=== PATIENT | female | born 1930 | race Caucasian/White ===

== ENCOUNTER 2016-12-05 11:23 | Inpatient (IN) | payer OTHER ==
[~2016-12-05] VITALS: Ht 165.1 cm; Wt 83.7 kg
[~2016-12-05 11:23] MED LIST: AMLODIPINE BESY10 MG PO; ATIVAN0.5 MG PO; ATORVASTATIN CA40 MG PO; BACTRIM,SEPT1 TABLET PO; BISACODYL5 MG PO; CELEXA10 MG PO; COUMADIN3 MG PO; Chronulac,Cephulac,Enulose 20 gm/30 ml PO; DOCUSATE SODIU100 MG PO; DULCOLAX5 MG PO; ENDOCET 5-3251 EACH PO; ENULOSE10 GM/15 M PO; GENTLE LAXATIVE5 M1 PO; HIPREX1 GM PO; HYDROCODON-ACE1 EAC7 PO; IMODIUM MS REL1 EACH PO; IRON325 M1 PO; IRON325 MG PO; LABETALOL HCL100 MG PO; LEXAPRO20 MG PO; LIPITOR40 MG PO; LISINOPRIL10 MG PO; LORAZEPAM0.5 MG PO; LORAZEPAM1 MG PO; NORCO 5/3251 TABLET PO; NORVASC10 MG PO; OMEPRAZOLE20 MG PO; PANTOPRAZOLE SO40 MG PO; POTASSIUM CITR10 MEQ PO; PRINIVIL10 MG PO; PROMETHAZINE HC25 M1 PO; STOOL SOFTENER100 M1 PO; SYNTHROID50 MCG PO; TRAZODONE HCL50 MG PO; TYLENOL REGULA325 MG PO; ULTRAM50 MG PO; ZOLOFT50 MG PO
[2016-12-05 11:55] LABS: EOSINOPHIL (%) 0.1 % (0-5); HEMATOCRIT 35.2 % (36.0-46.0); IMMATURE GRANULOCYTE (%) 0.8 % (0.0-0.7); IMMATURE GRANULOCYTE COUNT 0.1 K/uL; INSTRUMENT ABS NEUTROPHIL CT 10.3 K/uL; LYMPHOCYTE COUNT 1.3 K/uL (1.0-2.8); MCV 97.2 FL (83-99); MEAN PLAT.VOLUME 10.2 uM^3 (9.5-12.4); MONOCYTE (%) 10.5 % (3-12); MONOCYTE COUNT 1.4 K/uL (0-0.8); NEUTROPHIL (%) 78.4 % (45-76); NEUTROPHIL COUNT 10.3 K/uL (1.8-6.4); PLATELET COUNT 243 K/uL (156-360); RBC DIS.WIDTH-CV 13.9 % (11.8-14.6); RBC DIS.WIDTH-SD 50.4 % (39-53); RED BLOOD COUNT 3.62 M/uL (3.80-5.20); WHITE BLOOD COUNT 13.1 K/uL (4.1-10.2)
[2016-12-05 12:03] LABS: CHLORIDE 99 mEq/L (99-109); POTASSIUM 4.7 mEq/L (3.7-5.4); SODIUM 135 mEq/L (136-147)
[2016-12-05 12:05] LABS: GLUCOSE 142 mg/dL (70-99)
[2016-12-05 12:06] LABS: ANION GAP 14 MEQ/L (2-14)
[2016-12-05 12:07] LABS: TOTAL BILIRUBIN 0.8 mg/dL (0.0-1.0)
[2016-12-05 12:09] LABS: ALKALINE PHOSPHATASE 141 IU/L (3-129); GFR ESTIMATE (CALCULATED) 25 mL/min/
[2016-12-05 12:10] LABS: UREA NITROGEN (BUN) 25 mg/dL (9-23)
[2016-12-05] MEDS ORDERED: ACETAMINOPHEN325 M1 PO (12:58)
[2016-12-05] MEDS ORDERED: VITAMIN D31000 UNIT PO (13:00)
[2016-12-05] MEDS ORDERED: FUROSEMIDE40 MG PO (13:07)
[2016-12-05] MEDS ORDERED: ARICEPT5 MG PO (13:07)
[2016-12-05] MEDS ORDERED: BUSPAR10 MG PO (13:07)
[2016-12-05] MEDS ORDERED: KLOR-CON 1010 ME1 PO (13:08)
[2016-12-05] MEDS ORDERED: XARELTO15 MG PO (13:09)
[2016-12-05 14:15] VITALS: BP 119/58
[2016-12-05 19:40] VITALS: BP 141/61
[2016-12-06 00:30] VITALS: BP 134/57
[2016-12-06 04:45] VITALS: BP 117/60
[2016-12-06 05:37] LABS: EOSINOPHIL (%) 0.2 % (0-5); HEMATOCRIT 29.7 % (36.0-46.0); IMMATURE GRANULOCYTE (%) 0.6 % (0.0-0.7); IMMATURE GRANULOCYTE COUNT 0.1 K/uL; INSTRUMENT ABS NEUTROPHIL CT 11.2 K/uL; LYMPHOCYTE COUNT 1.5 K/uL (1.0-2.8); MCH 33.2 PG (29.0-34.0); MCV 97.7 FL (83-99); MEAN PLAT.VOLUME 10.6 uM^3 (9.5-12.4); MONOCYTE (%) 10.9 % (3-12); MONOCYTE COUNT 1.6 K/uL (0-0.8); NEUTROPHIL (%) 77.6 % (45-76); NEUTROPHIL COUNT 11.2 K/uL (1.8-6.4); PLATELET COUNT 215 K/uL (156-360); RED BLOOD COUNT 3.04 M/uL (3.80-5.20); WHITE BLOOD COUNT 14.5 K/uL (4.1-10.2)
[2016-12-06 06:03] LABS: ANION GAP 8 MEQ/L (2-14); CHLORIDE 98 MEQ/L (99-109); GFR ESTIMATE (CALCULATED) 23 mL/min/; GLUCOSE 124 mg/dL (70-99); SAMPLE HEMOLYSIS CHECK 0; SAMPLE ICTERIC CHECK 0; SAMPLE LIPEMIA CHECK 0; SODIUM 134 MEQ/L (136-147); UREA NITROGEN (BUN) 22 mg/dL (9-23)
[2016-12-06 07:24] VITALS: BP 125/61
[2016-12-06 09:19] LABS: INTER. NORMALIZED RATIO 1.5; PROTHROMBIN TIME 16.2 SEC (10.2-12.9)
[2016-12-06 11:30] VITALS: BP 118/58
[2016-12-06 15:25] VITALS: BP 133/59
[2016-12-07 03:06] VITALS: BP 130/62
[2016-12-07 05:30] VITALS: BP 140/63
[2016-12-07 06:53] LABS: INTER. NORMALIZED RATIO 1.2; PROTHROMBIN TIME 13.1 SEC (10.2-12.9)
[2016-12-07 07:37] LABS: ADD MIUA? YES; BILIRUBIN NEGATIVE; BLOOD MODERATE; COLOR YELLOW ((YELLOW)); GLUCOSE (STRIP) NEGATIVE; KETONES NEGATIVE; LEUKOCYTES LARGE; NITRITE NEGATIVE; PROTEIN (STRIP) 30; SPECIFIC GRAVITY 1.011 (1.000-1.030); UROBILINOGEN 0.2 MG/DL (0.2-1.0)
[2016-12-07 08:09] LABS: EPITHELIAL CELLS 3+ /HPF; MUCUS NONE SEEN /LPF; RED BLOOD CELLS 20-30 /HPF (0-5); WHITE BLOOD CELLS 30-40 /HPF (0-5)
[2016-12-07 08:10] LABS: BACTERIA 3+ /HPF; CASTS NONE SEEN /LPF; CRYSTALS NONE SEEN; UCUL ADDED? YES
[2016-12-07 09:25] VITALS: BP 111/49
[2016-12-07 12:02] VITALS: BP 128/59
[2016-12-07] MEDS ORDERED: LOVENOX80 MG/0.8 SC (17:49)
[2016-12-07] MEDS ORDERED: COUMADIN2 MG PO (17:50)
== END 2016-12-07 19:52 | disposition home health service (06) | DRG 682 ==
LOC: EME 11:23 → EDOF 12:43 → 5WEST 12:43 → ENRESERV 13:16 → EDOF 13:17 → ENRESERV 13:20 → 5WEST 13:59 → ENRESERV 12-06 14:08 → CANRESERV 12-06 14:08 → 5WEST 12-07 19:52
PROVIDERS: Emergency Medicine; Family Medicine
DX: N17.9 Acute kidney failure, unspecified (principal); I26.99 Other pulmonary embolism without acute cor pulmonale; N18.3 Chronic kidney disease, stage 3 (moderate); I12.9 Hypertensive chronic kidney disease with stage 1 through stage 4 chronic kidney disease, or unspecified chronic kidney disease; E86.0 Dehydration; E87.1 Hypo-osmolality and hyponatremia; E78.5 Hyperlipidemia, unspecified; D64.9 Anemia, unspecified; M19.90 Unspecified osteoarthritis, unspecified site; E66.9 Obesity, unspecified; G89.4 Chronic pain syndrome; K21.9 Gastro-esophageal reflux disease without esophagitis; F03.90 Unspecified dementia, unspecified severity, without behavioral disturbance, psychotic disturbance, mood disturbance, and anxiety; F41.8 Other specified anxiety disorders; Z90.49 Acquired absence of other specified parts of digestive tract; Z86.711 Personal history of pulmonary embolism; Z68.30 Body mass index [BMI] 30.0-30.9, adult; Z79.01 Long term (current) use of anticoagulants; Z88.6 Allergy status to analgesic agent; Z88.8 Allergy status to other drugs, medicaments and biological substances
CPT/HCPCS: 70450; 71010; 80048; 80053; 81003; 85025; 85610; 87086; 93005; 99281; 99285; G0378; G8987 GO CM; G8988 GO CJ; J1650; J7030

== ENCOUNTER 2017-09-14 13:35 | Inpatient (IN) | payer OTHER ==
[~2017-09-14] VITALS: Ht 160 cm; Wt 80.1 kg
[~2017-09-14 13:35] MED LIST changes: +ACETAMINOPHEN325 M1 PO; +ARICEPT5 MG PO; +BUSPAR10 MG PO; +COUMADIN2 MG PO; +FUROSEMIDE40 MG PO; +KLOR-CON 1010 ME1 PO; +LOVENOX80 MG/0.8 SC; -NORVASC10 MG PO; +NORVASC5 MG PO; +VITAMIN D31000 UNIT PO; +XARELTO15 MG PO
[2017-09-14 14:35] LABS: BASOPHIL (%) 0.3 % (0-1); BASOPHIL COUNT 0.1 K/uL (0-0.1); EOSINOPHIL (%) 0.1 % (0-5); HEMATOCRIT 33.1 % (36.0-46.0); HEMOGLOBIN 10.9 G/DL (11.9-15.5); IMMATURE GRANULOCYTE (%) 0.6 % (0.0-0.7); LYMPHOCYTE (%) 4.3 % (15-42); MCH 30.4 PG (29.0-34.0); MCHC 32.9 G/DL (30.0-36.0); MCV 92.5 FL (83-99); MONOCYTE COUNT 1.3 K/uL (0-0.8); NEUTROPHIL (%) 88.7 % (45-76); PLATELET COUNT 364 K/uL (156-360); RBC DIS.WIDTH-CV 16.2 % (11.8-14.6); RBC DIS.WIDTH-SD 55.6 % (39-53); RED BLOOD COUNT 3.58 M/uL (3.80-5.20); WHITE BLOOD COUNT 22.5 K/uL (4.1-10.2)
[2017-09-14 14:44] LABS: ALBUMIN 3.5 g/dL (3.2-4.8)
[2017-09-14 14:45] LABS: CHLORIDE 98 mEq/L (99-109); POTASSIUM 4.7 mEq/L (3.7-5.4); SODIUM 133 mEq/L (136-147)
[2017-09-14 14:47] LABS: GLUCOSE 116 mg/dL (70-99); TOTAL PROTEIN 7.4 g/dL (6.4-8.3)
[2017-09-14 14:49] LABS: TOTAL BILIRUBIN 0.6 mg/dL (0.0-1.0)
[2017-09-14 14:50] LABS: ALKALINE PHOSPHATASE 146 IU/L (3-129)
[2017-09-14 14:51] LABS: CREATININE 2.2 mg/dL (0.6-1.3); GFR ESTIMATE (CALCULATED) 23 mL/min/
[2017-09-14 14:52] LABS: AST (GOT) 13 IU/L (2-34); UREA NITROGEN (BUN) 27 mg/dL (9-23)
[2017-09-14 14:53] LABS: ALT (GPT) 7 IU/L (3-49)
[2017-09-14 14:54] LABS: LIPASE 17 U/L (1.0-51.0)
[2017-09-14 14:56] LABS: TROP-I INTERPRETATION NEGATIVE; TROPONIN-I 0.02 ng/mL (0.0-0.30)
[2017-09-14 17:32] LABS: APPEARANCE CLOUDY ((CLEAR)); BILIRUBIN NEGATIVE; BLOOD SMALL; COLOR YELLOW ((YELLOW)); GLUCOSE (STRIP) NEGATIVE; KETONES NEGATIVE; LEUKOCYTES LARGE; NITRITE NEGATIVE; PROTEIN (STRIP) NEGATIVE; SPECIFIC GRAVITY 1.009 (1.000-1.030); UROBILINOGEN 0.2 MG/DL (0.2-1.0)
[2017-09-14 18:15] LABS: RED BLOOD CELLS 0-5 /HPF (0-5)
[2017-09-14 18:16] LABS: BACTERIA 1+ /HPF; EPITHELIAL CELLS 1+ /HPF; HYALINE CASTS RARE /LPF; MUCUS TRACE /LPF; UCUL ADDED? YES; WHITE BLOOD CELLS 40-50 /HPF (0-5)
[2017-09-14] MEDS ORDERED: ATIVAN0.5 MG PO (19:29)
[2017-09-14] MEDS ORDERED: ELIQUIS2.5 MG PO (19:32)
[2017-09-14 22:45] VITALS: BP 128/59
[2017-09-14 22:51] VITALS: BP 112/50
[2017-09-14 23:25] VITALS: BP 93/42
[2017-09-15 00:45] VITALS: BP 98/56
[2017-09-15 03:50] VITALS: BP 95/46
[2017-09-15 05:55] LABS: HEMATOCRIT 28.5 % (36.0-46.0); HEMOGLOBIN 9.1 G/DL (11.9-15.5); MCH 30.3 PG (29.0-34.0); MCHC 31.9 G/DL (30.0-36.0); PLATELET COUNT 295 K/uL (156-360); RBC DIS.WIDTH-CV 16.8 % (11.8-14.6); RBC DIS.WIDTH-SD 58.6 % (39-53); WHITE BLOOD COUNT 24.4 K/uL (4.1-10.2)
[2017-09-15 06:23] LABS: CHLORIDE 102 MEQ/L (99-109); CREATININE 2.3 MG/DL (0.6-1.3); GFR ESTIMATE (CALCULATED) 21 mL/min/; GLUCOSE 109 mg/dL (70-99); POTASSIUM 4.5 MEQ/L (3.7-5.4); SODIUM 135 MEQ/L (136-147); UREA NITROGEN (BUN) 28 mg/dL (9-23)
[2017-09-15 07:23] VITALS: BP 115/55
[2017-09-15 11:12] VITALS: BP 107/70
[2017-09-15 15:16] VITALS: BP 123/59
[2017-09-15 19:45] VITALS: BP 133/63
[2017-09-16 00:09] VITALS: BP 130/60
[2017-09-16 08:20] VITALS: BP 160/67
[2017-09-16 16:18] VITALS: BP 136/58
[2017-09-17 00:12] VITALS: BP 141/65
[2017-09-17 06:06] LABS: HEMATOCRIT 27.2 % (36.0-46.0); HEMOGLOBIN 8.8 G/DL (11.9-15.5); MCH 30.4 PG (29.0-34.0); MCHC 32.4 G/DL (30.0-36.0); MCV 94.1 FL (83-99); PLATELET COUNT 281 K/uL (156-360); RBC DIS.WIDTH-CV 16.6 % (11.8-14.6); RED BLOOD COUNT 2.89 M/uL (3.80-5.20); WHITE BLOOD COUNT 11.8 K/uL (4.1-10.2)
[2017-09-17 06:32] LABS: CHLORIDE 101 MEQ/L (99-109); CREATININE 2.1 MG/DL (0.6-1.3); GFR ESTIMATE (CALCULATED) 24 mL/min/; GLUCOSE 100 mg/dL (70-99); POTASSIUM 4.3 MEQ/L (3.7-5.4); SODIUM 136 MEQ/L (136-147); UREA NITROGEN (BUN) 19 mg/dL (9-23)
[2017-09-17 06:41] LABS: VANCOMYCIN, TROUGH 18.1 MCG/ML (10-20)
[2017-09-17 08:08] VITALS: BP 151/68
[2017-09-17 16:31] VITALS: BP 121/57
[2017-09-17] MEDS ORDERED: CEFTRIAXONE2 G1 IV (17:01)
== END 2017-09-17 19:25 | disposition home health service (06) | DRG 690 ==
LOC: EME 13:35 → EDOF 19:07 → 2EAST 19:07 → ENRESERV 20:08 → 2EAST 22:30 → ENRESERV 22:37 → CANRESERV 22:37 → 2EAST 09-17 19:25
PROVIDERS: Emergency Medicine; Family Medicine
DX: N10 Acute pyelonephritis (principal); R78.81 Bacteremia; B96.20 Unspecified Escherichia coli [E. coli] as the cause of diseases classified elsewhere; Z66 Do not resuscitate; F41.9 Anxiety disorder, unspecified; F32.9 Major depressive disorder, single episode, unspecified; E78.5 Hyperlipidemia, unspecified; E03.9 Hypothyroidism, unspecified; K21.9 Gastro-esophageal reflux disease without esophagitis; I12.9 Hypertensive chronic kidney disease with stage 1 through stage 4 chronic kidney disease, or unspecified chronic kidney disease; N18.3 Chronic kidney disease, stage 3 (moderate); G89.4 Chronic pain syndrome; F03.90 Unspecified dementia, unspecified severity, without behavioral disturbance, psychotic disturbance, mood disturbance, and anxiety; E55.9 Vitamin D deficiency, unspecified; J90 Pleural effusion, not elsewhere classified; D64.9 Anemia, unspecified; Z88.1 Allergy status to other antibiotic agents; Z88.5 Allergy status to narcotic agent; Z86.711 Personal history of pulmonary embolism; Z79.01 Long term (current) use of anticoagulants
CPT/HCPCS: 71046; 74176; 76937; 80048; 80053; 80202; 81003; 82565; 83605; 83690; 83880; 84484; 85025; 85027; 87040; 87077; 87086; 87186; 87801; 94799; 97530 GP; 99281; 99285; C1894; J2543; J3370; J7030; J7040; J7050

== ENCOUNTER 2017-09-24 17:16 | Inpatient (IN) | payer OTHER ==
[~2017-09-24] VITALS: Ht 157.5 cm; Wt 71.3 kg
[~2017-09-24 17:16] MED LIST changes: +CEFTRIAXONE2 G1 IV; +ELIQUIS2.5 MG PO
[2017-09-24 18:36] LABS: BASOPHIL (%) 0.3 % (0-1); BASOPHIL COUNT 0.1 K/uL (0-0.1); EOSINOPHIL (%) 3.7 % (0-5); EOSINOPHIL COUNT 0.7 K/uL (0-0.3); HEMATOCRIT 32.5 % (36.0-46.0); HEMOGLOBIN 10.7 G/DL (11.9-15.5); IMMATURE GRANULOCYTE (%) 0.7 % (0.0-0.7); LYMPHOCYTE (%) 8.4 % (15-42); LYMPHOCYTE COUNT 1.6 K/uL (1.0-2.8); MCH 30.6 PG (29.0-34.0); MCHC 32.9 G/DL (30.0-36.0); MCV 92.9 FL (83-99); MONOCYTE (%) 5.2 % (3-12); NEUTROPHIL (%) 81.7 % (45-76); NEUTROPHIL COUNT 15.5 K/uL (1.8-6.4); RBC DIS.WIDTH-CV 16.6 % (11.8-14.6); RBC DIS.WIDTH-SD 57.5 % (39-53)
[2017-09-24 18:47] LABS: ALBUMIN 3.5 g/dL (3.2-4.8); CHLORIDE 98 mEq/L (99-109); POTASSIUM 4.7 mEq/L (3.7-5.4); SODIUM 134 mEq/L (136-147)
[2017-09-24 18:49] LABS: GLUCOSE 128 mg/dL (70-99); PLATELET COUNT 399 K/uL (156-360); TOTAL PROTEIN 7.5 g/dL (6.4-8.3)
[2017-09-24 18:51] LABS: TOTAL BILIRUBIN 0.3 mg/dL (0.0-1.0)
[2017-09-24 18:53] LABS: ALKALINE PHOSPHATASE 125 IU/L (3-129); CREATININE 1.7 mg/dL (0.6-1.3); GFR ESTIMATE (CALCULATED) 30 mL/min/
[2017-09-24 18:54] LABS: UREA NITROGEN (BUN) 15 mg/dL (9-23)
[2017-09-24 18:55] LABS: AST (GOT) 9 IU/L (2-34)
[2017-09-24 18:56] LABS: ALT (GPT) 6 IU/L (3-49)
[2017-09-24 19:04] LABS: APPEARANCE CLEAR ((CLEAR)); BILIRUBIN NEGATIVE; BLOOD MODERATE; COLOR YELLOW ((YELLOW)); GLUCOSE (STRIP) NEGATIVE; KETONES NEGATIVE; LEUKOCYTES TRACE; NITRITE NEGATIVE; PROTEIN (STRIP) NEGATIVE; SPECIFIC GRAVITY 1.011 (1.000-1.030); UROBILINOGEN 0.2 MG/DL (0.2-1.0)
[2017-09-24 19:08] LABS: BACTERIA NONE SEEN /HPF; EPITHELIAL CELLS RARE /HPF; MUCUS TRACE /LPF; UCUL ADDED? YES
[2017-09-24] MEDS ORDERED: TYLENOL EXTRA500 MG PO (22:11)
[2017-09-25] VITALS (7 sets, daily range): BP systolic 126–154; BP diastolic 53–78
[2017-09-26 03:59] VITALS: BP 127/59
[2017-09-26 07:22] LABS: HEMATOCRIT 27.8 % (36.0-46.0); MCH 30.6 PG (29.0-34.0); MCHC 32.4 G/DL (30.0-36.0); MCV 94.6 FL (83-99); PLATELET COUNT 333 K/uL (156-360); RBC DIS.WIDTH-CV 17.1 % (11.8-14.6); RBC DIS.WIDTH-SD 59.5 % (39-53); RED BLOOD COUNT 2.94 M/uL (3.80-5.20); WHITE BLOOD COUNT 27.9 K/uL (4.1-10.2)
[2017-09-26 07:45] LABS: CHLORIDE 98 MEQ/L (99-109); GFR ESTIMATE (CALCULATED) 25 mL/min/; GLUCOSE 109 mg/dL (70-99); POTASSIUM 4.5 MEQ/L (3.7-5.4); SODIUM 133 MEQ/L (136-147); UREA NITROGEN (BUN) 19 mg/dL (9-23)
[2017-09-26 08:46] VITALS: BP 115/56
[2017-09-26 12:00] VITALS: BP 131/61
[2017-09-26 16:15] VITALS: BP 123/68
[2017-09-26 20:23] VITALS: BP 132/59
[2017-09-27] VITALS (7 sets, daily range): BP systolic 118–136; BP diastolic 56–81
[2017-09-27 07:01] LABS: HEMATOCRIT 25.6 % (36.0-46.0); HEMOGLOBIN 8.3 G/DL (11.9-15.5); MCH 30.5 PG (29.0-34.0); MCHC 32.4 G/DL (30.0-36.0); MCV 94.1 FL (83-99); PLATELET COUNT 338 K/uL (156-360); RBC DIS.WIDTH-CV 17.2 % (11.8-14.6); RBC DIS.WIDTH-SD 59.2 % (39-53); RED BLOOD COUNT 2.72 M/uL (3.80-5.20); WHITE BLOOD COUNT 25.2 K/uL (4.1-10.2)
[2017-09-27 07:26] LABS: CHLORIDE 99 MEQ/L (99-109); CREATININE 2.1 MG/DL (0.6-1.3); GFR ESTIMATE (CALCULATED) 24 mL/min/; GLUCOSE 98 mg/dL (70-99); POTASSIUM 4.8 MEQ/L (3.7-5.4); SODIUM 133 MEQ/L (136-147); UREA NITROGEN (BUN) 26 mg/dL (9-23)
[2017-09-28 04:05] VITALS: BP 118/58
[2017-09-28 08:09] VITALS: BP 131/61
[2017-09-28 09:14] LABS: HEMATOCRIT 26.3 % (36.0-46.0); HEMOGLOBIN 8.6 G/DL (11.9-15.5); MCH 30.5 PG (29.0-34.0); MCHC 32.7 G/DL (30.0-36.0); MCV 93.3 FL (83-99); PLATELET COUNT 354 K/uL (156-360); RBC DIS.WIDTH-CV 16.7 % (11.8-14.6); RBC DIS.WIDTH-SD 57.4 % (39-53); RED BLOOD COUNT 2.82 M/uL (3.80-5.20); WHITE BLOOD COUNT 25.5 K/uL (4.1-10.2)
[2017-09-28 09:44] LABS: CHLORIDE 97 MEQ/L (99-109); GFR ESTIMATE (CALCULATED) 25 mL/min/; POTASSIUM 4.6 MEQ/L (3.7-5.4); SODIUM 129 MEQ/L (136-147); UREA NITROGEN (BUN) 29 mg/dL (9-23)
[2017-09-28 09:47] LABS: GLUCOSE 148 mg/dL (70-99)
[2017-09-28 11:21] VITALS: BP 118/59
[2017-09-28 15:31] VITALS: BP 117/57
[2017-09-28 20:31] VITALS: BP 121/60
[2017-09-28 23:39] VITALS: BP 107/52
[2017-09-29] VITALS (11 sets, daily range): BP systolic 85–131; BP diastolic 43–106
[2017-09-29 06:02] LABS: HEMATOCRIT 26.9 % (36.0-46.0); HEMOGLOBIN 8.6 G/DL (11.9-15.5); MCH 30.1 PG (29.0-34.0); MCV 94.1 FL (83-99); PLATELET COUNT 397 K/uL (156-360); RBC DIS.WIDTH-CV 16.9 % (11.8-14.6); RBC DIS.WIDTH-SD 57.3 % (39-53); RED BLOOD COUNT 2.86 M/uL (3.80-5.20); WHITE BLOOD COUNT 28.9 K/uL (4.1-10.2)
[2017-09-29 08:35] LABS: ALBUMIN 2.6 g/dL (3.2-4.8); CHLORIDE 97 mEq/L (99-109); POTASSIUM 4.7 mEq/L (3.7-5.4); SODIUM 130 mEq/L (136-147)
[2017-09-29 08:37] LABS: GLUCOSE 135 mg/dL (70-99)
[2017-09-29 08:41] LABS: ALKALINE PHOSPHATASE 129 IU/L (3-129); CREATININE 2.4 mg/dL (0.6-1.3); GFR ESTIMATE (CALCULATED) 20 mL/min/
[2017-09-29 08:42] LABS: TOTAL BILIRUBIN 0.4 mg/dL (0.0-1.0); UREA NITROGEN (BUN) 33 mg/dL (9-23)
[2017-09-29 08:43] LABS: AST (GOT) 9 IU/L (2-34)
[2017-09-29 08:44] LABS: ALT (GPT) 7 IU/L (3-49)
[2017-09-29 08:45] LABS: TROP-I INTERPRETATION NEGATIVE; TROPONIN-I 0.02 ng/mL (0.0-0.30)
[2017-09-29 09:47] LABS: SITE LR
[2017-09-29 09:48] LABS: COMMENTS - BLOOD GASES A+C+; DEVICE NC; O2 FLOW 3 L/MIN; PCO2 43 mm Hg (35-45); pH 7.36 (7.35-7.45)
[2017-09-29 09:49] LABS: BASE EXCESS -1.3 mEq/L (-3 to +3); BICARBONATE 24.3 mEq/L (22-26); PO2 65 mm Hg (80-100)
[2017-09-30] VITALS (11 sets, daily range): BP systolic 110–139; BP diastolic 46–68
[2017-09-30 05:38] LABS: PLATELET COUNT 465 K/uL (156-360)
[2017-09-30 06:04] LABS: TROP-I INTERPRETATION NEGATIVE; TROPONIN-I 0.01 ng/mL (0.0-0.30)
[2017-09-30 06:06] LABS: HEMATOCRIT 28.8 % (36.0-46.0); HEMOGLOBIN 9.4 G/DL (11.9-15.5); MCH 30.6 PG (29.0-34.0); MCHC 32.6 G/DL (30.0-36.0); MCV 93.8 FL (83-99); RBC DIS.WIDTH-CV 16.9 % (11.8-14.6); RBC DIS.WIDTH-SD 57.8 % (39-53); RED BLOOD COUNT 3.07 M/uL (3.80-5.20)
[2017-09-30 06:19] LABS: WHITE BLOOD COUNT 33.1 K/uL (4.1-10.2)
[2017-09-30 06:28] LABS: CHLORIDE 90 MEQ/L (99-109); CREATININE 2.6 MG/DL (0.6-1.3); GFR ESTIMATE (CALCULATED) 19 mL/min/; GLUCOSE 141 mg/dL (70-99); POTASSIUM 4.4 MEQ/L (3.7-5.4); SODIUM 129 MEQ/L (136-147); UREA NITROGEN (BUN) 40 mg/dL (9-23)
[2017-10-01] VITALS (21 sets, daily range): BP systolic 91–161; BP diastolic 36–87
[2017-10-01 05:04] LABS: HEMATOCRIT 25.5 % (36.0-46.0); HEMOGLOBIN 8.3 G/DL (11.9-15.5); MCHC 32.5 G/DL (30.0-36.0); MCV 95.1 FL (83-99); PLATELET COUNT 390 K/uL (156-360); RBC DIS.WIDTH-SD 59.4 % (39-53); RED BLOOD COUNT 2.68 M/uL (3.80-5.20); WHITE BLOOD COUNT 28.7 K/uL (4.1-10.2)
[2017-10-01 05:14] LABS: CHLORIDE 98 mEq/L (99-109); POTASSIUM 5.1 mEq/L (3.7-5.4); SODIUM 128 mEq/L (136-147)
[2017-10-01 05:15] LABS: MAGNESIUM 1.6 mg/dL (1.3-2.7)
[2017-10-01 05:16] LABS: GLUCOSE 138 mg/dL (70-99)
[2017-10-01 05:20] LABS: CREATININE 2.8 mg/dL (0.6-1.3); GFR ESTIMATE (CALCULATED) 17 mL/min/
[2017-10-01 05:21] LABS: UREA NITROGEN (BUN) 44 mg/dL (9-23)
[2017-10-01 08:52] LABS: VANCOMYCIN, TROUGH 14.3 MCG/ML (10-20)
[2017-10-02] VITALS (23 sets, daily range): BP systolic 81–142; BP diastolic 37–65
[2017-10-02 09:15] LABS: BASOPHIL (%) 0.5 % (0-1); BASOPHIL COUNT 0.1 K/uL (0-0.1); EOSINOPHIL (%) 1.6 % (0-5); EOSINOPHIL COUNT 0.4 K/uL (0-0.3); HEMATOCRIT 25.1 % (36.0-46.0); HEMOGLOBIN 7.9 G/DL (11.9-15.5); IMMATURE GRANULOCYTE (%) 3.7 % (0.0-0.7); LYMPHOCYTE (%) 5.3 % (15-42); LYMPHOCYTE COUNT 1.4 K/uL (1.0-2.8); MCH 30.4 PG (29.0-34.0); MCHC 31.5 G/DL (30.0-36.0); MCV 96.5 FL (83-99); MONOCYTE (%) 4.5 % (3-12); MONOCYTE COUNT 1.2 K/uL (0-0.8); NEUTROPHIL (%) 84.4 % (45-76); NEUTROPHIL COUNT 21.8 K/uL (1.8-6.4); PLATELET COUNT 418 K/uL (156-360); RBC DIS.WIDTH-CV 17.6 % (11.8-14.6); RBC DIS.WIDTH-SD 63.1 % (39-53); WHITE BLOOD COUNT 25.8 K/uL (4.1-10.2)
[2017-10-02 09:47] LABS: CHLORIDE 99 MEQ/L (99-109); CREATININE 3.1 MG/DL (0.6-1.3); GFR ESTIMATE (CALCULATED) 15 mL/min/; GLUCOSE 109 mg/dL (70-99); MAGNESIUM 1.7 mg/dl (1.3-2.7); PHOSPHORUS 4.2 mg/dL (2.5-4.9); POTASSIUM 4.7 MEQ/L (3.7-5.4); SODIUM 127 MEQ/L (136-147); UREA NITROGEN (BUN) 48 mg/dL (9-23); URIC ACID 7.4 mg/dL (3.1-9.2)
[2017-10-02 12:20] LABS: INTER. NORMALIZED RATIO 1.9
[2017-10-02 12:23] LABS: PTT 35.8 SEC (25-37)
[2017-10-03] VITALS (24 sets, daily range): BP systolic 97–163; BP diastolic 40–73
[2017-10-03 05:38] LABS: CHLORIDE 99 mEq/L (99-109); POTASSIUM 4.8 mEq/L (3.7-5.4); SODIUM 128 mEq/L (136-147)
[2017-10-03 05:39] LABS: MAGNESIUM 1.7 mg/dL (1.3-2.7)
[2017-10-03 05:40] LABS: GLUCOSE 90 mg/dL (70-99)
[2017-10-03 05:41] LABS: BASOPHIL (%) 0.6 % (0-1); BASOPHIL COUNT 0.2 K/uL (0-0.1); EOSINOPHIL (%) 2.3 % (0-5); EOSINOPHIL COUNT 0.7 K/uL (0-0.3); HEMOGLOBIN 8.3 G/DL (11.9-15.5); IMMATURE GRANULOCYTE (%) 4.4 % (0.0-0.7); LYMPHOCYTE (%) 5.3 % (15-42); LYMPHOCYTE COUNT 1.5 K/uL (1.0-2.8); MCH 30.7 PG (29.0-34.0); MCHC 31.9 G/DL (30.0-36.0); MCV 96.3 FL (83-99); MONOCYTE (%) 4.1 % (3-12); MONOCYTE COUNT 1.2 K/uL (0-0.8); NEUTROPHIL (%) 83.3 % (45-76); NEUTROPHIL COUNT 24.3 K/uL (1.8-6.4); PLATELET COUNT 430 K/uL (156-360); RBC DIS.WIDTH-CV 18.1 % (11.8-14.6); RBC DIS.WIDTH-SD 64.5 % (39-53); WHITE BLOOD COUNT 29.1 K/uL (4.1-10.2)
[2017-10-03 05:44] LABS: CREATININE 3.5 mg/dL (0.6-1.3); GFR ESTIMATE (CALCULATED) 13 mL/min/; PHOSPHORUS 4.5 mg/dL (2.5-4.9)
[2017-10-03 05:45] LABS: UREA NITROGEN (BUN) 51 mg/dL (9-23)
[2017-10-03 13:44] LABS: C DIFF TOXIN POSITIVE (NEGATIVE)
[2017-10-04] VITALS (17 sets, daily range): BP systolic 115–161; BP diastolic 40–72
[2017-10-04 06:18] LABS: INTER. NORMALIZED RATIO 1.4
[2017-10-04 06:20] LABS: PTT 75.1 SEC (25-37)
[2017-10-04 06:42] LABS: ANISOCYTOSIS 2+; BASOPHILS 0.4 %; BURR CELLS 2+; EOSINOPHILS 3.1 % (0-5.0); HEMATOCRIT 25.7 % (36.0-46.0); LYMPHOCYTES 4.8 % (15.0-45.0); MACROCYTES 2+; MCH 29.9 PG (29.0-34.0); MCHC 31.1 G/DL (30.0-36.0); MCV 95.9 FL (83-99); METAMYELOCYTES 1.3 %; MONOCYTES 2.6 % (0-9.0); MYELOCYTES 3.5 %; NRBC (%) 0.1 /100 WBC (0-0); OVALOCYTES 1+; PLAT.SUFFICIENCY INCREASED; PLATELET COUNT 417 K/uL (156-360); POIKILOCYTOSIS 3+; RBC DIS.WIDTH-CV 17.8 % (11.8-14.6); RBC DIS.WIDTH-SD 62.9 % (39-53); RED BLOOD COUNT 2.68 M/uL (3.80-5.20); SEG.NEUTROPHILS 84.3 % (46.0-76.0)
[2017-10-04 06:43] LABS: CHLORIDE 99 MEQ/L (99-109); CREATININE 3.7 MG/DL (0.6-1.3); GFR ESTIMATE (CALCULATED) 12 mL/min/; GLUCOSE 86 mg/dL (70-99); MAGNESIUM 1.9 mg/dl (1.3-2.7); PHOSPHORUS 4.5 mg/dL (2.5-4.9); POTASSIUM 4.5 MEQ/L (3.7-5.4); SODIUM 127 MEQ/L (136-147); UREA NITROGEN (BUN) 58 mg/dL (9-23)
[2017-10-04 12:56] LABS: INTER. NORMALIZED RATIO 1.4
[2017-10-04 12:59] LABS: PTT 80.6 SEC (25-37)
[2017-10-05] VITALS (15 sets, daily range): BP systolic 95–145; BP diastolic 37–77
[2017-10-05 06:50] LABS: HEMATOCRIT 26.3 % (36.0-46.0); HEMOGLOBIN 8.1 G/DL (11.9-15.5); MCH 30.2 PG (29.0-34.0); MCHC 30.8 G/DL (30.0-36.0); MCV 98.1 FL (83-99); NRBC (%) 0.1 /100 WBC (0-0); PLATELET COUNT 371 K/uL (156-360); RBC DIS.WIDTH-CV 17.8 % (11.8-14.6); RBC DIS.WIDTH-SD 63.7 % (39-53); RED BLOOD COUNT 2.68 M/uL (3.80-5.20)
[2017-10-05 06:53] LABS: WHITE BLOOD COUNT 33.6 K/uL (4.1-10.2)
[2017-10-05 07:00] LABS: ABS NEUTROPHIL COUNT 28.8; ANISOCYTOSIS 1+; BAND NEUTROPHILS 2.2 % (0-8.0); BASOPHILS 0.9 %; BURR CELLS 1+; EOSINOPHIL ABS CT 1.2; EOSINOPHILS 3.5 % (0-5.0); LYMPHOCYTES 5.7 % (15.0-45.0); MACROCYTES 1+; METAMYELOCYTES 1.3 %; MONOCYTES 1.3 % (0-9.0); MYELOCYTES 1.7 %; PLAT.SUFFICIENCY INCREASED; POIKILOCYTOSIS 1+; SEG.NEUTROPHILS 83.4 % (46.0-76.0); SMUDGE CELLS 2.2
[2017-10-05 07:53] LABS: CHLORIDE 102 MEQ/L (99-109); CREATININE 3.8 MG/DL (0.6-1.3); GFR ESTIMATE (CALCULATED) 12 mL/min/; GLUCOSE 127 mg/dL (70-99); MAGNESIUM 2.1 mg/dl (1.3-2.7); POTASSIUM 4.9 MEQ/L (3.7-5.4); SODIUM 130 MEQ/L (136-147); UREA NITROGEN (BUN) 57 mg/dL (9-23)
[2017-10-06] VITALS (7 sets, daily range): BP systolic 120–162; BP diastolic 46–68
[2017-10-06 04:42] LABS: PLATELET COUNT 375 K/uL (156-360)
[2017-10-06 04:48] LABS: HEMATOCRIT 25.7 % (36.0-46.0); HEMOGLOBIN 8.1 G/DL (11.9-15.5); MCH 30.6 PG (29.0-34.0); MCHC 31.5 G/DL (30.0-36.0); NRBC (%) 0.2 /100 WBC (0-0); RBC DIS.WIDTH-CV 17.5 % (11.8-14.6); RBC DIS.WIDTH-SD 61.4 % (39-53); RED BLOOD COUNT 2.65 M/uL (3.80-5.20)
[2017-10-06 04:58] LABS: CHLORIDE 102 mEq/L (99-109); POTASSIUM 4.7 mEq/L (3.7-5.4); SODIUM 130 mEq/L (136-147)
[2017-10-06 04:59] LABS: MAGNESIUM 1.9 mg/dL (1.3-2.7)
[2017-10-06 05:02] LABS: GLUCOSE 120 mg/dL (70-99)
[2017-10-06 05:03] LABS: PHOSPHORUS 4.4 mg/dL (2.5-4.9)
[2017-10-06 05:04] LABS: CREATININE 3.5 mg/dL (0.6-1.3); GFR ESTIMATE (CALCULATED) 13 mL/min/
[2017-10-06 05:07] LABS: UREA NITROGEN (BUN) 57 mg/dL (9-23)
[2017-10-06 05:48] LABS: ANISOCYTOSIS 1+; ATYPICAL LYMPHOCYTE 1.8 %; BAND NEUTROPHILS 1.7 % (0-8.0); BURR CELLS 1+; EOSINOPHIL ABS CT 1.2; EOSINOPHILS 3.1 % (0-5.0); LYMPHOCYTES 5.7 % (15.0-45.0); MACROCYTES 1+; METAMYELOCYTES 1.3 %; MONOCYTES 2.2 % (0-9.0); MYELOCYTES 1.3 %; OVALOCYTES 1+; POIKILOCYTOSIS 1+; POLYCHROMASIA 1+; SEG.NEUTROPHILS 82.9 % (46.0-76.0); TOX.VACUOLIZATION 1+; TOXIC GRANULATION 3+
[2017-10-06 17:21] LABS: INTER. NORMALIZED RATIO 1.1
[2017-10-06 17:24] LABS: PTT 76.7 SEC (25-37)
[2017-10-07 03:47] VITALS: BP 160/53
[2017-10-07 05:35] LABS: TROP-I INTERPRETATION NEGATIVE; TROPONIN-I < 0.01 ng/mL (0.0-0.30)
[2017-10-07 06:59] LABS: PLATELET COUNT 312 K/uL (156-360)
[2017-10-07 07:08] LABS: HEMATOCRIT 24.5 % (36.0-46.0); HEMOGLOBIN 7.6 G/DL (11.9-15.5); MCH 30.2 PG (29.0-34.0); MCV 97.2 FL (83-99); NRBC (%) 0.3 /100 WBC (0-0); RBC DIS.WIDTH-CV 17.9 % (11.8-14.6); RED BLOOD COUNT 2.52 M/uL (3.80-5.20)
[2017-10-07 07:10] LABS: WHITE BLOOD COUNT 30.3 K/uL (4.1-10.2)
[2017-10-07 07:28] LABS: ABS NEUTROPHIL COUNT 25.8; ANISOCYTOSIS 1+; BAND NEUTROPHILS 0.4 % (0-8.0); BASOPH.STIPPLING 1+; EOSINOPHIL ABS CT 0.4; EOSINOPHILS 1.3 % (0-5.0); LYMPHOCYTES 6.5 % (15.0-45.0); MACROCYTES 1+; METAMYELOCYTES 4.4 %; MONOCYTES 1.3 % (0-9.0); MYELOCYTES 1.3 %; NUCLEATED RBC'S 0.4; PLAT.SUFFICIENCY ADEQUATE; POLYCHROMASIA 1+; SEG.NEUTROPHILS 84.8 % (46.0-76.0)
[2017-10-07 08:08] VITALS: BP 171/59
[2017-10-07 08:30] LABS: TROP-I INTERPRETATION NEGATIVE; TROPONIN-I 0.01 ng/mL (0.0-0.30)
[2017-10-07 08:39] LABS: CHLORIDE 104 MEQ/L (99-109); CREATININE 3.5 MG/DL (0.6-1.3); GFR ESTIMATE (CALCULATED) 13 mL/min/; GLUCOSE 111 mg/dL (70-99); PHOSPHORUS 4.3 mg/dL (2.5-4.9); POTASSIUM 4.7 MEQ/L (3.7-5.4); SODIUM 132 MEQ/L (136-147); UREA NITROGEN (BUN) 57 mg/dL (9-23)
[2017-10-07 11:46] VITALS: BP 161/55
[2017-10-07 16:16] VITALS: BP 153/50
[2017-10-07 16:37] LABS: TROP-I INTERPRETATION NEGATIVE; TROPONIN-I < 0.01 ng/mL (0.0-0.30)
[2017-10-07 19:50] VITALS: BP 170/52
[2017-10-07 20:19] LABS: COMMENTS - BLOOD GASES A+C+; SITE RR
[2017-10-07 20:20] LABS: DEVICE HHFNC; FI02 80 %; PCO2 57 mm Hg (35-45); PO2 61 mm Hg (80-100); pH 7.21 (7.35-7.45)
[2017-10-07 20:21] LABS: BASE EXCESS -5.1 mEq/L (-3 to +3); BICARBONATE 22.8 mEq/L (22-26); CARBOXY HGB 1.7 % (0-5); O2 SATURATION (CALCULATED) 92.2 % (95-99)
[2017-10-07 23:35] VITALS: BP 138/57
[2017-10-08] VITALS (11 sets, daily range): BP systolic 101–160; BP diastolic 28–57
[2017-10-08 01:51] LABS: TROP-I INTERPRETATION NEGATIVE; TROPONIN-I < 0.01 ng/mL (0.0-0.30)
[2017-10-08 06:24] LABS: PLATELET COUNT 342 K/uL (156-360)
[2017-10-08 06:50] LABS: HEMATOCRIT 24.5 % (36.0-46.0); HEMOGLOBIN 7.5 G/DL (11.9-15.5); MCH 29.6 PG (29.0-34.0); MCHC 30.6 G/DL (30.0-36.0); MCV 96.8 FL (83-99); NRBC (%) 0.4 /100 WBC (0-0); RBC DIS.WIDTH-CV 17.8 % (11.8-14.6); RBC DIS.WIDTH-SD 63.7 % (39-53); RED BLOOD COUNT 2.53 M/uL (3.80-5.20)
[2017-10-08 07:11] LABS: ABS NEUTROPHIL COUNT 27.9; ANISOCYTOSIS 1+; BAND NEUTROPHILS 2.1 % (0-8.0); BASOPH.STIPPLING 1+; BASOPHILS 1.3 %; EOSINOPHIL ABS CT 0.1; EOSINOPHILS 0.4 % (0-5.0); LYMPHOCYTES 6.5 % (15.0-45.0); MACROCYTES 1+; METAMYELOCYTES 2.2 %; MONOCYTES 0.9 % (0-9.0); MYELOCYTES 4.3 %; PLAT.SUFFICIENCY INCREASED; PLATELET CLUMPS PRESENT - PLATELET COUNT APPEARS INCREASED; POIKILOCYTOSIS 1+; POLYCHROMASIA 1+; SEG.NEUTROPHILS 82.3 % (46.0-76.0); WHITE BLOOD COUNT 33.1 K/uL (4.1-10.2)
[2017-10-08 07:45] LABS: CHLORIDE 104 MEQ/L (99-109); CREATININE 3.5 MG/DL (0.6-1.3); GFR ESTIMATE (CALCULATED) 13 mL/min/; GLUCOSE 91 mg/dL (70-99); POTASSIUM 5.1 MEQ/L (3.7-5.4); SODIUM 132 MEQ/L (136-147); UREA NITROGEN (BUN) 62 mg/dL (9-23)
[2017-10-08 11:03] LABS: ALBUMIN 2.4 G/DL (3.2-4.8)
[2017-10-09] VITALS (8 sets, daily range): BP systolic 90–124; BP diastolic 33–58
[2017-10-09 09:20] LABS: MCH 29.3 PG (29.0-34.0); MCHC 30.9 G/DL (30.0-36.0); MCV 94.7 FL (83-99); NRBC (%) 0.5 /100 WBC (0-0); PLATELET COUNT 285 K/uL (156-360); RBC DIS.WIDTH-CV 18.4 % (11.8-14.6); RBC DIS.WIDTH-SD 63.4 % (39-53)
[2017-10-09 09:32] LABS: HEMOGLOBIN 9.9 G/DL (11.9-15.5); RED BLOOD COUNT 3.38 M/uL (3.80-5.20); WHITE BLOOD COUNT 31.8 K/uL (4.1-10.2)
[2017-10-09 09:33] LABS: CHLORIDE 103 MEQ/L (99-109); CREATININE 3.5 MG/DL (0.6-1.3); GFR ESTIMATE (CALCULATED) 13 mL/min/; MAGNESIUM 2.1 mg/dl (1.3-2.7); SODIUM 133 MEQ/L (136-147); UREA NITROGEN (BUN) 63 mg/dL (9-23)
[2017-10-09 09:35] LABS: GLUCOSE 137 mg/dL (70-99); PHOSPHORUS 6.5 mg/dL (2.5-4.9)
[2017-10-09 09:49] LABS: ABS NEUTROPHIL COUNT 27.9; ANISOCYTOSIS 1+; BASOPHILS 0.4 %; BURR CELLS 1+; EOSINOPHIL ABS CT 0.1; EOSINOPHILS 0.4 % (0-5.0); LYMPHOCYTES 3.1 % (15.0-45.0); MACROCYTES 1+; METAMYELOCYTES 1.7 %; MONOCYTES 4.4 % (0-9.0); MYELOCYTES 2.2 %; NUCLEATED RBC'S 1.3; OVALOCYTES 1+; PLAT.SUFFICIENCY ADEQUATE; POIKILOCYTOSIS 1+; SEG.NEUTROPHILS 87.8 % (46.0-76.0); SMUDGE CELLS 0.9
[2017-10-10] VITALS (14 sets, daily range): BP systolic 131–175; BP diastolic 37–90
[2017-10-10 07:48] LABS: HEMATOCRIT 29.1 % (36.0-46.0); HEMOGLOBIN 9.3 G/DL (11.9-15.5); MCH 30.2 PG (29.0-34.0); MCV 94.5 FL (83-99); NRBC (%) 0.4 /100 WBC (0-0); PLATELET COUNT 279 K/uL (156-360); RBC DIS.WIDTH-CV 18.8 % (11.8-14.6); RBC DIS.WIDTH-SD 64.7 % (39-53); RED BLOOD COUNT 3.08 M/uL (3.80-5.20); WHITE BLOOD COUNT 25.9 K/uL (4.1-10.2)
[2017-10-10 07:56] LABS: CHLORIDE 103 MEQ/L (99-109); CREATININE 3.6 MG/DL (0.6-1.3); GFR ESTIMATE (CALCULATED) 13 mL/min/; GLUCOSE 134 mg/dL (70-99); POTASSIUM 4.1 MEQ/L (3.7-5.4); SODIUM 137 MEQ/L (136-147); UREA NITROGEN (BUN) 69 mg/dL (9-23)
[2017-10-10 08:40] LABS: ABS NEUTROPHIL COUNT 22.7; BAND NEUTROPHILS 2.6 % (0-8.0); EOSINOPHIL ABS CT 0.2; EOSINOPHILS 0.9 % (0-5.0); LYMPHOCYTES 5.3 % (15.0-45.0); METAMYELOCYTES 3.5 %; MONOCYTES 2.6 % (0-9.0); NUCLEATED RBC'S 0.9; SEG.NEUTROPHILS 85.1 % (46.0-76.0)
[2017-10-10 08:52] LABS: COMMENTS - BLOOD GASES A+C+; SITE RR
[2017-10-10 08:53] LABS: BASE EXCESS -2.3 mEq/L (-3 to +3); BICARBONATE 28.4 mEq/L (22-26); CARBOXY HGB 1.6 % (0-5); DEVICE NCHH; FI02 100 %; METHEMOGLOBIN 0.8 % (0-1.5); O2 FLOW 55 L/MIN; O2 SATURATION (CALCULATED) 90.1 % (95-99); PCO2 66 mm Hg (35-45); PO2 57 mm Hg (80-100); TOTAL RESP RATE 26 resp/min
[2017-10-10 08:54] LABS: pH 7.21 (7.35-7.45)
[2017-10-10 13:50] LABS: COMMENTS - BLOOD GASES A+C+; DEVICE 980 PB MASK; FI02 100 %; MODE SPONT NIV; PCO2 63 mm Hg (35-45); PEEP 8 CM/H20; PO2 52 mm Hg (80-100); PRES. SUPPORT 15 CM/H2O; SITE LR; TOTAL RESP RATE 24 resp/min; pH 7.23 (7.35-7.45)
[2017-10-10 13:51] LABS: BASE EXCESS -1.8 mEq/L (-3 to +3); BICARBONATE 26.4 mEq/L (22-26); CARBOXY HGB 1.9 % (0-5); O2 SATURATION (CALCULATED) 88.4 % (95-99)
[2017-10-10 21:03] LABS: CARBOXY HGB 1.5 % (0-5); COMMENTS - BLOOD GASES A+C+; DEVICE 980 PB MASK; FI02 100 %; MODE SPONT NIV; O2 SATURATION (CALCULATED) 92.6 % (95-99); PCO2 54 mm Hg (35-45); PEEP 8 CM/H20; PO2 62 mm Hg (80-100); PRES. SUPPORT 20 CM/H2O; SITE LR; TOTAL RESP RATE 20 resp/min
[2017-10-10 21:04] LABS: BASE EXCESS -0.2 mEq/L (-3 to +3); BICARBONATE 26.6 mEq/L (22-26); METHEMOGLOBIN 1.1 % (0-1.5)
[2017-10-10 21:26] LABS: CHLORIDE 102 MEQ/L (99-109); CREATININE 3.5 MG/DL (0.6-1.3); GFR ESTIMATE (CALCULATED) 13 mL/min/; GLUCOSE 132 mg/dL (70-99); POTASSIUM 3.9 MEQ/L (3.7-5.4); SODIUM 137 MEQ/L (136-147); UREA NITROGEN (BUN) 70 mg/dL (9-23)
[2017-10-11] VITALS (22 sets, daily range): BP systolic 105–159; BP diastolic 41–75
[2017-10-11 05:02] LABS: BASOPHIL (%) 0.4 % (0-1); BASOPHIL COUNT 0.1 K/uL (0-0.1); EOSINOPHIL (%) 0.1 % (0-5); IMMATURE GRANULOCYTE (%) 3.7 % (0.0-0.7); LYMPHOCYTE COUNT 1.2 K/uL (1.0-2.8); MONOCYTE (%) 3.3 % (3-12); NEUTROPHIL (%) 88.5 % (45-76); NEUTROPHIL COUNT 26.7 K/uL (1.8-6.4); PLATELET COUNT 257 K/uL (156-360)
[2017-10-11 05:53] LABS: CHLORIDE 99 MEQ/L (99-109); CREATININE 3.7 MG/DL (0.6-1.3); GFR ESTIMATE (CALCULATED) 12 mL/min/; GLUCOSE 148 mg/dL (70-99); POTASSIUM 4.2 MEQ/L (3.7-5.4); SODIUM 139 MEQ/L (136-147); UREA NITROGEN (BUN) 71 mg/dL (9-23)
[2017-10-11 06:16] LABS: HEMATOCRIT 27.5 % (36.0-46.0); HEMOGLOBIN 8.6 G/DL (11.9-15.5); MCH 29.6 PG (29.0-34.0); MCHC 31.3 G/DL (30.0-36.0); MCV 94.5 FL (83-99); NRBC (%) 0.2 /100 WBC (0-0); RBC DIS.WIDTH-CV 18.2 % (11.8-14.6); RBC DIS.WIDTH-SD 62.3 % (39-53); RED BLOOD COUNT 2.91 M/uL (3.80-5.20)
[2017-10-11 06:18] LABS: WHITE BLOOD COUNT 30.1 K/uL (4.1-10.2)
[2017-10-11 11:27] LABS: COMMENTS - BLOOD GASES A+C+; DEVICE VENT; FI02 100 %; MECHANICAL RATE 16 resp/min; MODE ACVC; PEEP 5 CM/H20; SITE LR; TIDAL VOLUME 450 ML; TOTAL RESP RATE 16 resp/min
[2017-10-11 11:28] LABS: BASE EXCESS 3.8 mEq/L (-3 to +3); BICARBONATE 29.5 mEq/L (22-26); PCO2 51 mm Hg (35-45); PO2 79 mm Hg (80-100); pH 7.37 (7.35-7.45)
[2017-10-12] VITALS (23 sets, daily range): BP systolic 86–125; BP diastolic 34–56
[2017-10-12 05:12] LABS: BASOPHIL (%) 0.5 % (0-1); BASOPHIL COUNT 0.1 K/uL (0-0.1); EOSINOPHIL (%) 0.4 % (0-5); EOSINOPHIL COUNT 0.1 K/uL (0-0.3); HEMATOCRIT 24.2 % (36.0-46.0); HEMOGLOBIN 7.9 G/DL (11.9-15.5); IMMATURE GRANULOCYTE (%) 2.5 % (0.0-0.7); LYMPHOCYTE (%) 5.1 % (15-42); LYMPHOCYTE COUNT 1.3 K/uL (1.0-2.8); MCH 29.8 PG (29.0-34.0); MCHC 32.6 G/DL (30.0-36.0); MCV 91.3 FL (83-99); MONOCYTE (%) 3.7 % (3-12); MONOCYTE COUNT 0.9 K/uL (0-0.8); NEUTROPHIL (%) 87.8 % (45-76); NEUTROPHIL COUNT 21.8 K/uL (1.8-6.4); NRBC (%) 0.2 /100 WBC (0-0); PLATELET COUNT 223 K/uL (156-360); RBC DIS.WIDTH-CV 17.4 % (11.8-14.6); RBC DIS.WIDTH-SD 57.1 % (39-53); RED BLOOD COUNT 2.65 M/uL (3.80-5.20); WHITE BLOOD COUNT 24.8 K/uL (4.1-10.2)
[2017-10-12 05:40] LABS: ALBUMIN 3.1 G/DL (3.2-4.8); ALKALINE PHOSPHATASE 45 IU/L (3-129); ALT (GPT) 13 IU/L (3-49); AST (GOT) 16 IU/L (2-34); CHLORIDE 99 MEQ/L (99-109); CREATININE 3.5 MG/DL (0.6-1.3); GFR ESTIMATE (CALCULATED) 13 mL/min/; GLUCOSE 169 mg/dL (70-99); MAGNESIUM 1.8 mg/dl (1.3-2.7); POTASSIUM 3.1 MEQ/L (3.7-5.4); SODIUM 139 MEQ/L (136-147); TOTAL BILIRUBIN 0.9 MG/DL (0.0-1.0); TOTAL PROTEIN 5.3 G/DL (6.4-8.3); UREA NITROGEN (BUN) 74 mg/dL (9-23)
[2017-10-13] VITALS (22 sets, daily range): BP systolic 94–151; BP diastolic 37–779
[2017-10-13 06:32] LABS: BASOPHIL (%) 0.4 % (0-1); BASOPHIL COUNT 0.1 K/uL (0-0.1); EOSINOPHIL (%) 1.6 % (0-5); EOSINOPHIL COUNT 0.4 K/uL (0-0.3); HEMATOCRIT 22.6 % (36.0-46.0); HEMOGLOBIN 7.4 G/DL (11.9-15.5); IMMATURE GRANULOCYTE (%) 2.3 % (0.0-0.7); LYMPHOCYTE (%) 5.9 % (15-42); LYMPHOCYTE COUNT 1.3 K/uL (1.0-2.8); MCH 29.6 PG (29.0-34.0); MCHC 32.7 G/DL (30.0-36.0); MCV 90.4 FL (83-99); MONOCYTE (%) 4.1 % (3-12); MONOCYTE COUNT 0.9 K/uL (0-0.8); NEUTROPHIL (%) 85.7 % (45-76); NEUTROPHIL COUNT 18.9 K/uL (1.8-6.4); NRBC (%) 0.1 /100 WBC (0-0); PLATELET COUNT 236 K/uL (156-360); RBC DIS.WIDTH-CV 17.1 % (11.8-14.6); RBC DIS.WIDTH-SD 55.2 % (39-53)
[2017-10-13 06:43] LABS: COMMENTS - BLOOD GASES A+C+; DEVICE 840 VENT; FI02 60 %; MECHANICAL RATE 16 resp/min; MODE AC VC+; SITE RR; TOTAL RESP RATE 20 resp/min
[2017-10-13 06:45] LABS: PEEP 5 CM/H20; TIDAL VOLUME 450 ML
[2017-10-13 06:46] LABS: BASE EXCESS 6.3 mEq/L (-3 to +3); BICARBONATE 29.2 mEq/L (22-26); CARBOXY HGB 1.5 % (0-5); METHEMOGLOBIN 1.3 % (0-1.5); O2 SATURATION (CALCULATED) 97.7 % (95-99); PCO2 35 mm Hg (35-45); PO2 82 mm Hg (80-100); pH 7.53 (7.35-7.45)
[2017-10-13 08:28] LABS: CHLORIDE 95 MEQ/L (99-109); CREATININE 3.7 MG/DL (0.6-1.3); GFR ESTIMATE (CALCULATED) 12 mL/min/; GLUCOSE 155 mg/dL (70-99); MAGNESIUM 1.9 mg/dl (1.3-2.7); PHOSPHORUS 3.6 mg/dL (2.5-4.9); POTASSIUM 3.6 MEQ/L (3.7-5.4); SODIUM 137 MEQ/L (136-147); UREA NITROGEN (BUN) 82 mg/dL (9-23)
[2017-10-14] VITALS (23 sets, daily range): BP systolic 90–125; BP diastolic 34–55
[2017-10-14 05:35] LABS: BASOPHIL (%) 0.4 % (0-1); BASOPHIL COUNT 0.1 K/uL (0-0.1); EOSINOPHIL COUNT 0.7 K/uL (0-0.3); HEMATOCRIT 23.8 % (36.0-46.0); HEMOGLOBIN 7.9 G/DL (11.9-15.5); LYMPHOCYTE (%) 7.1 % (15-42); LYMPHOCYTE COUNT 1.2 K/uL (1.0-2.8); MCH 29.8 PG (29.0-34.0); MCHC 33.2 G/DL (30.0-36.0); MCV 89.8 FL (83-99); MONOCYTE (%) 4.1 % (3-12); MONOCYTE COUNT 0.7 K/uL (0-0.8); NEUTROPHIL (%) 82.4 % (45-76); NEUTROPHIL COUNT 14.1 K/uL (1.8-6.4); PLATELET COUNT 244 K/uL (156-360); RBC DIS.WIDTH-SD 54.5 % (39-53); RED BLOOD COUNT 2.65 M/uL (3.80-5.20); WHITE BLOOD COUNT 17.2 K/uL (4.1-10.2)
[2017-10-14 06:28] LABS: CHLORIDE 95 MEQ/L (99-109); CREATININE 3.6 MG/DL (0.6-1.3); GFR ESTIMATE (CALCULATED) 13 mL/min/; GLUCOSE 142 mg/dL (70-99); MAGNESIUM 2.2 mg/dl (1.3-2.7); PHOSPHORUS 3.6 mg/dL (2.5-4.9); POTASSIUM 3.4 MEQ/L (3.7-5.4); SODIUM 137 MEQ/L (136-147); UREA NITROGEN (BUN) 87 mg/dL (9-23)
[2017-10-15] VITALS (24 sets, daily range): BP systolic 95–119; BP diastolic 35–48
[2017-10-15 06:13] LABS: BASOPHIL (%) 0.4 % (0-1); BASOPHIL COUNT 0.1 K/uL (0-0.1); EOSINOPHIL (%) 7.6 % (0-5); EOSINOPHIL COUNT 1.1 K/uL (0-0.3); HEMATOCRIT 22.5 % (36.0-46.0); HEMOGLOBIN 7.4 G/DL (11.9-15.5); IMMATURE GRANULOCYTE (%) 1.5 % (0.0-0.7); LYMPHOCYTE (%) 7.3 % (15-42); LYMPHOCYTE COUNT 1.1 K/uL (1.0-2.8); MCHC 32.9 G/DL (30.0-36.0); MCV 91.1 FL (83-99); MONOCYTE (%) 5.9 % (3-12); MONOCYTE COUNT 0.9 K/uL (0-0.8); NEUTROPHIL (%) 77.3 % (45-76); NEUTROPHIL COUNT 11.2 K/uL (1.8-6.4); PLATELET COUNT 247 K/uL (156-360); RBC DIS.WIDTH-CV 17.2 % (11.8-14.6); RBC DIS.WIDTH-SD 54.5 % (39-53); RED BLOOD COUNT 2.47 M/uL (3.80-5.20); WHITE BLOOD COUNT 14.5 K/uL (4.1-10.2)
[2017-10-15 07:12] LABS: CHLORIDE 96 MEQ/L (99-109); CREATININE 3.4 MG/DL (0.6-1.3); GFR ESTIMATE (CALCULATED) 14 mL/min/; GLUCOSE 152 mg/dL (70-99); MAGNESIUM 2.5 mg/dl (1.3-2.7); PHOSPHORUS 3.4 mg/dL (2.5-4.9); SODIUM 140 MEQ/L (136-147); UREA NITROGEN (BUN) 98 mg/dL (9-23)
[2017-10-15 07:14] LABS: POTASSIUM 4.2 MEQ/L (3.7-5.4)
[2017-10-15 13:16] LABS: C DIFF TOXIN ND (NEGATIVE)
[2017-10-15 14:30] LABS: COMMENTS - BLOOD GASES A+C+; SITE LR
[2017-10-15 14:31] LABS: BASE EXCESS 9.3 mEq/L (-3 to +3); BICARBONATE 33.5 mEq/L (22-26); CARBOXY HGB 2.2 % (0-5); DEVICE VENT; FI02 40 %; METHEMOGLOBIN 0.8 % (0-1.5); MODE SPONT; O2 SATURATION (CALCULATED) 97.1 % (95-99); PCO2 44 mm Hg (35-45); PEEP 5 CM/H20; PO2 71 mm Hg (80-100); PRES. SUPPORT 15 CM/H2O; TOTAL RESP RATE 25 resp/min; pH 7.49 (7.35-7.45)
[2017-10-16] VITALS (24 sets, daily range): BP systolic 95–134; BP diastolic 36–68
[2017-10-16 06:37] LABS: BASOPHIL (%) 0.4 % (0-1); BASOPHIL COUNT 0.1 K/uL (0-0.1); EOSINOPHIL (%) 10.8 % (0-5); EOSINOPHIL COUNT 1.4 K/uL (0-0.3); HEMATOCRIT 22.4 % (36.0-46.0); HEMOGLOBIN 7.3 G/DL (11.9-15.5); IMMATURE GRANULOCYTE (%) 1.4 % (0.0-0.7); MCHC 32.6 G/DL (30.0-36.0); MCV 92.2 FL (83-99); MONOCYTE (%) 6.4 % (3-12); MONOCYTE COUNT 0.8 K/uL (0-0.8); NEUTROPHIL COUNT 9.5 K/uL (1.8-6.4); PLATELET COUNT 261 K/uL (156-360); RBC DIS.WIDTH-CV 17.6 % (11.8-14.6); RBC DIS.WIDTH-SD 57.3 % (39-53); RED BLOOD COUNT 2.43 M/uL (3.80-5.20)
[2017-10-16 08:24] LABS: CHLORIDE 96 MEQ/L (99-109); CREATININE 3.2 MG/DL (0.6-1.3); GFR ESTIMATE (CALCULATED) 15 mL/min/; GLUCOSE 165 mg/dL (70-99); MAGNESIUM 2.6 mg/dl (1.3-2.7); POTASSIUM 4.6 MEQ/L (3.7-5.4); SODIUM 139 MEQ/L (136-147)
[2017-10-16 08:25] LABS: UREA NITROGEN (BUN) 103 mg/dL (9-23)
[2017-10-17] VITALS (20 sets, daily range): BP systolic 101–115; BP diastolic 35–396
[2017-10-17 06:41] LABS: BASOPHIL (%) 0.4 % (0-1); BASOPHIL COUNT 0.1 K/uL (0-0.1); EOSINOPHIL (%) 12.1 % (0-5); EOSINOPHIL COUNT 1.6 K/uL (0-0.3); HEMATOCRIT 23.6 % (36.0-46.0); HEMOGLOBIN 7.6 G/DL (11.9-15.5); IMMATURE GRANULOCYTE (%) 1.1 % (0.0-0.7); LYMPHOCYTE COUNT 1.5 K/uL (1.0-2.8); MCH 30.2 PG (29.0-34.0); MCHC 32.2 G/DL (30.0-36.0); MCV 93.7 FL (83-99); MONOCYTE (%) 6.2 % (3-12); MONOCYTE COUNT 0.8 K/uL (0-0.8); NEUTROPHIL (%) 69.2 % (45-76); NEUTROPHIL COUNT 9.3 K/uL (1.8-6.4); PLATELET COUNT 291 K/uL (156-360); RBC DIS.WIDTH-CV 17.5 % (11.8-14.6); RBC DIS.WIDTH-SD 59.5 % (39-53); RED BLOOD COUNT 2.52 M/uL (3.80-5.20); WHITE BLOOD COUNT 13.4 K/uL (4.1-10.2)
[2017-10-17 08:01] LABS: CHLORIDE 97 MEQ/L (99-109); CREATININE 3.1 MG/DL (0.6-1.3); GFR ESTIMATE (CALCULATED) 15 mL/min/; GLUCOSE 167 mg/dL (70-99); POTASSIUM 4.6 MEQ/L (3.7-5.4); SODIUM 139 MEQ/L (136-147)
[2017-10-17 08:02] LABS: UREA NITROGEN (BUN) 106 mg/dL (9-23)
[2017-10-18] VITALS (26 sets, daily range): BP systolic 104–139; BP diastolic 4–65
[2017-10-18 07:47] LABS: HEMATOCRIT 24.2 % (36.0-46.0); HEMOGLOBIN 7.6 G/DL (11.9-15.5); MCH 29.7 PG (29.0-34.0); MCHC 31.4 G/DL (30.0-36.0); MCV 94.5 FL (83-99); PLATELET COUNT 330 K/uL (156-360); RBC DIS.WIDTH-CV 17.5 % (11.8-14.6); RBC DIS.WIDTH-SD 59.8 % (39-53); RED BLOOD COUNT 2.56 M/uL (3.80-5.20); WHITE BLOOD COUNT 11.2 K/uL (4.1-10.2)
[2017-10-18 08:24] LABS: CHLORIDE 98 MEQ/L (99-109); CREATININE 2.9 MG/DL (0.6-1.3); GFR ESTIMATE (CALCULATED) 16 mL/min/; GLUCOSE 169 mg/dL (70-99); MAGNESIUM 2.7 mg/dl (1.3-2.7); PHOSPHORUS 4.6 mg/dL (2.5-4.9); POTASSIUM 4.9 MEQ/L (3.7-5.4); SODIUM 142 MEQ/L (136-147); UREA NITROGEN (BUN) 112 mg/dL (9-23)
[2017-10-18 20:43] LABS: HEMATOCRIT 30.9 % (36.0-46.0); MCH 29.3 PG (29.0-34.0); MCHC 32.4 G/DL (30.0-36.0); MCV 90.6 FL (83-99); PLATELET COUNT 306 K/uL (156-360); RBC DIS.WIDTH-CV 17.4 % (11.8-14.6); RBC DIS.WIDTH-SD 56.6 % (39-53); RED BLOOD COUNT 3.41 M/uL (3.80-5.20); WHITE BLOOD COUNT 8.6 K/uL (4.1-10.2)
[2017-10-19] VITALS (24 sets, daily range): BP systolic 111–146; BP diastolic 40–68
[2017-10-19 07:03] LABS: BASOPHIL (%) 0.7 % (0-1); BASOPHIL COUNT 0.1 K/uL (0-0.1); EOSINOPHIL (%) 15.9 % (0-5); EOSINOPHIL COUNT 1.3 K/uL (0-0.3); HEMATOCRIT 32.7 % (36.0-46.0); HEMOGLOBIN 10.6 G/DL (11.9-15.5); IMMATURE GRANULOCYTE (%) 1.1 % (0.0-0.7); LYMPHOCYTE (%) 12.1 % (15-42); MCH 29.5 PG (29.0-34.0); MCHC 32.4 G/DL (30.0-36.0); MCV 91.1 FL (83-99); MONOCYTE COUNT 0.7 K/uL (0-0.8); NEUTROPHIL (%) 62.2 % (45-76); NEUTROPHIL COUNT 5.1 K/uL (1.8-6.4); PLATELET COUNT 339 K/uL (156-360); RBC DIS.WIDTH-CV 17.6 % (11.8-14.6); RBC DIS.WIDTH-SD 57.4 % (39-53); RED BLOOD COUNT 3.59 M/uL (3.80-5.20); WHITE BLOOD COUNT 8.3 K/uL (4.1-10.2)
[2017-10-19 07:40] LABS: CHLORIDE 97 MEQ/L (99-109); CREATININE 2.8 MG/DL (0.6-1.3); GFR ESTIMATE (CALCULATED) 17 mL/min/; GLUCOSE 153 mg/dL (70-99); MAGNESIUM 2.6 mg/dl (1.3-2.7); PHOSPHORUS 5.3 mg/dL (2.5-4.9); POTASSIUM 4.7 MEQ/L (3.7-5.4); SODIUM 140 MEQ/L (136-147)
[2017-10-19 07:42] LABS: UREA NITROGEN (BUN) 111 mg/dL (9-23)
[2017-10-20] VITALS (24 sets, daily range): BP systolic 111–157; BP diastolic 36–75
[2017-10-20 03:00] LABS: BASOPHIL (%) 0.7 % (0-1); BASOPHIL COUNT 0.1 K/uL (0-0.1); EOSINOPHIL (%) 18.1 % (0-5); EOSINOPHIL COUNT 1.3 K/uL (0-0.3); HEMATOCRIT 35.1 % (36.0-46.0); HEMOGLOBIN 11.3 G/DL (11.9-15.5); IMMATURE GRANULOCYTE (%) 0.9 % (0.0-0.7); LYMPHOCYTE (%) 15.9 % (15-42); LYMPHOCYTE COUNT 1.2 K/uL (1.0-2.8); MCH 29.6 PG (29.0-34.0); MCHC 32.2 G/DL (30.0-36.0); MCV 91.9 FL (83-99); MONOCYTE (%) 9.3 % (3-12); MONOCYTE COUNT 0.7 K/uL (0-0.8); NEUTROPHIL (%) 55.1 % (45-76); NEUTROPHIL COUNT 4.1 K/uL (1.8-6.4); PLATELET COUNT 401 K/uL (156-360); RBC DIS.WIDTH-CV 17.5 % (11.8-14.6); RBC DIS.WIDTH-SD 57.7 % (39-53); RED BLOOD COUNT 3.82 M/uL (3.80-5.20); WHITE BLOOD COUNT 7.4 K/uL (4.1-10.2)
[2017-10-20 03:47] LABS: CHLORIDE 95 MEQ/L (99-109); CREATININE 2.6 MG/DL (0.6-1.3); GFR ESTIMATE (CALCULATED) 19 mL/min/; GLUCOSE 126 mg/dL (70-99); MAGNESIUM 2.5 mg/dl (1.3-2.7); PHOSPHORUS 4.7 mg/dL (2.5-4.9); POTASSIUM 4.6 MEQ/L (3.7-5.4); SODIUM 138 MEQ/L (136-147)
[2017-10-20 04:38] LABS: UREA NITROGEN (BUN) 106 mg/dL (9-23)
[2017-10-21] VITALS (13 sets, daily range): BP systolic 111–139; BP diastolic 41–63
[2017-10-21 05:26] LABS: HEMATOCRIT 36.4 % (36.0-46.0); HEMOGLOBIN 11.5 G/DL (11.9-15.5); MCH 29.2 PG (29.0-34.0); MCHC 31.6 G/DL (30.0-36.0); MCV 92.4 FL (83-99); PLATELET COUNT 423 K/uL (156-360); RBC DIS.WIDTH-CV 16.7 % (11.8-14.6); RBC DIS.WIDTH-SD 56.1 % (39-53); RED BLOOD COUNT 3.94 M/uL (3.80-5.20); WHITE BLOOD COUNT 5.8 K/uL (4.1-10.2)
[2017-10-21 06:48] LABS: CHLORIDE 94 MEQ/L (99-109); CREATININE 2.6 MG/DL (0.6-1.3); GFR ESTIMATE (CALCULATED) 19 mL/min/; GLUCOSE 120 mg/dL (70-99); MAGNESIUM 2.5 mg/dl (1.3-2.7); PHOSPHORUS 4.4 mg/dL (2.5-4.9); POTASSIUM 4.9 MEQ/L (3.7-5.4); SODIUM 136 MEQ/L (136-147); UREA NITROGEN (BUN) 93 mg/dL (9-23)
[2017-10-22 00:01] VITALS: BP 112/56
[2017-10-22 03:48] VITALS: BP 153/74
[2017-10-22 06:44] LABS: HEMATOCRIT 37.4 % (36.0-46.0); HEMOGLOBIN 11.9 G/DL (11.9-15.5); MCHC 31.8 G/DL (30.0-36.0); MCV 91.2 FL (83-99); PLATELET COUNT 434 K/uL (156-360); RBC DIS.WIDTH-CV 16.2 % (11.8-14.6); RBC DIS.WIDTH-SD 54.1 % (39-53); WHITE BLOOD COUNT 5.3 K/uL (4.1-10.2)
[2017-10-22 06:47] LABS: INTER. NORMALIZED RATIO 1.2
[2017-10-22 07:57] VITALS: BP 137/63
[2017-10-22 08:13] LABS: CHLORIDE 93 MEQ/L (99-109); CREATININE 2.6 MG/DL (0.6-1.3); GFR ESTIMATE (CALCULATED) 19 mL/min/; GLUCOSE 112 mg/dL (70-99); MAGNESIUM 2.4 mg/dl (1.3-2.7); PHOSPHORUS 4.8 mg/dL (2.5-4.9); SODIUM 134 MEQ/L (136-147); UREA NITROGEN (BUN) 93 mg/dL (9-23)
[2017-10-22 11:12] VITALS: BP 144/66
[2017-10-22 15:39] VITALS: BP 135/61
[2017-10-22 20:25] VITALS: BP 137/60
[2017-10-23] VITALS (7 sets, daily range): BP systolic 130–154; BP diastolic 59–72
[2017-10-23 06:36] LABS: HEMATOCRIT 36.4 % (36.0-46.0); HEMOGLOBIN 11.5 G/DL (11.9-15.5); MCH 28.8 PG (29.0-34.0); MCHC 31.6 G/DL (30.0-36.0); PLATELET COUNT 449 K/uL (156-360); RBC DIS.WIDTH-CV 16.1 % (11.8-14.6); WHITE BLOOD COUNT 6.1 K/uL (4.1-10.2)
[2017-10-23 06:41] LABS: INTER. NORMALIZED RATIO 1.2
[2017-10-23 06:44] LABS: PTT 75.4 SEC (25-37)
[2017-10-23 07:01] LABS: CHLORIDE 92 MEQ/L (99-109); CREATININE 2.7 MG/DL (0.6-1.3); GFR ESTIMATE (CALCULATED) 18 mL/min/; GLUCOSE 118 mg/dL (70-99); MAGNESIUM 2.5 mg/dl (1.3-2.7); PHOSPHORUS 4.7 mg/dL (2.5-4.9); SODIUM 131 MEQ/L (136-147); UREA NITROGEN (BUN) 94 mg/dL (9-23)
[2017-10-24 04:26] VITALS: BP 142/64
[2017-10-24 06:50] LABS: HEMATOCRIT 35.6 % (36.0-46.0); HEMOGLOBIN 11.5 G/DL (11.9-15.5); MCH 29.4 PG (29.0-34.0); MCHC 32.3 G/DL (30.0-36.0); PLATELET COUNT 445 K/uL (156-360); RBC DIS.WIDTH-CV 16.2 % (11.8-14.6); RBC DIS.WIDTH-SD 53.1 % (39-53); RED BLOOD COUNT 3.91 M/uL (3.80-5.20)
[2017-10-24 06:56] LABS: INTER. NORMALIZED RATIO 1.3
[2017-10-24 07:11] LABS: PTT 107.4 SEC (25-37)
[2017-10-24] MEDS ORDERED: DUONEB 2.5-0.5 M3 ML AEROSOL (07:58)
[2017-10-24] MEDS ORDERED: SPIRONOLACTONE25 MG PO (08:02)
[2017-10-24] MEDS ORDERED: CARDIZEM30 MG PO (08:02)
[2017-10-24] MEDS ORDERED: XARELTO15 MG PO (08:07)
[2017-10-24] MEDS ORDERED: Tylenol Extra Streng PO (08:08)
[2017-10-24 08:33] LABS: CHLORIDE 93 MEQ/L (99-109); CREATININE 2.6 MG/DL (0.6-1.3); GFR ESTIMATE (CALCULATED) 19 mL/min/; GLUCOSE 101 mg/dL (70-99); MAGNESIUM 2.4 mg/dl (1.3-2.7); PHOSPHORUS 4.5 mg/dL (2.5-4.9); POTASSIUM 4.8 MEQ/L (3.7-5.4); SODIUM 131 MEQ/L (136-147); UREA NITROGEN (BUN) 89 mg/dL (9-23)
[2017-10-24 09:04] VITALS: BP 147/63
[2017-10-24 11:08] LABS: CHLORIDE 93 MEQ/L (99-109); CREATININE 2.5 MG/DL (0.6-1.3); GFR ESTIMATE (CALCULATED) 19 mL/min/; POTASSIUM 4.4 MEQ/L (3.7-5.4); SODIUM 129 MEQ/L (136-147); UREA NITROGEN (BUN) 90 mg/dL (9-23)
[2017-10-24 11:14] LABS: GLUCOSE 172 mg/dL (70-99)
[2017-10-25 15:54] LABS: STOOL OCCULT BLD 1ST SPECIMEN NEGATIVE
== END 2017-10-24 11:35 | DRG 870 ==
LOC: EME 17:16 → 4EAST 21:55 → 4WEST 21:55 → 3EAST 21:55 → EDOF 21:55 → ENRESERV 22:17 → 3EAST 23:56 → ENRESERV 09-29 08:35 → 4EAST 09-29 08:36 → ENRESERV 09-30 16:23 → 4EAST 09-30 16:23 → ENRESERV 09-30 16:56 → 4WEST 09-30 17:00 → ENRESERV 10-05 19:53 → 4EAST 10-05 21:39 → ENRESERV 10-10 11:59 → 4WEST 10-10 11:59 → ENRESERV 10-21 09:16 → 2EAST 10-21 12:24
PROVIDERS: Emergency Medicine; Family Medicine; Internal Medicine; Internal Medicine Cardiovascular Disease; Internal Medicine Critical Care Medicine; Internal Medicine Nephrology; Obstetrics & Gynecology; Physician Assistant Medical; Specialist; Surgery
DX: A41.51 Sepsis due to Escherichia coli [E. coli] (principal); N10 Acute pyelonephritis; Z16.12 Extended spectrum beta lactamase (ESBL) resistance; N17.0 Acute kidney failure with tubular necrosis; J96.01 Acute respiratory failure with hypoxia; J96.02 Acute respiratory failure with hypercapnia; J69.0 Pneumonitis due to inhalation of food and vomit; A04.72 Enterocolitis due to Clostridium difficile, not specified as recurrent; K22.4 Dyskinesia of esophagus; D63.1 Anemia in chronic kidney disease; E03.9 Hypothyroidism, unspecified; E87.1 Hypo-osmolality and hyponatremia; E55.9 Vitamin D deficiency, unspecified; E87.6 Hypokalemia; E87.2 Acidosis; J44.1 Chronic obstructive pulmonary disease with (acute) exacerbation; I13.0 Hypertensive heart and chronic kidney disease with heart failure and stage 1 through stage 4 chronic kidney disease, or unspecified chronic kidney disease; I50.9 Heart failure, unspecified; N18.4 Chronic kidney disease, stage 4 (severe); Z99.11 Dependence on respirator [ventilator] status; Z99.2 Dependence on renal dialysis; I35.0 Nonrheumatic aortic (valve) stenosis; I48.0 Paroxysmal atrial fibrillation; I95.9 Hypotension, unspecified; J98.11 Atelectasis; Z66 Do not resuscitate; E78.5 Hyperlipidemia, unspecified; G89.4 Chronic pain syndrome; F03.90 Unspecified dementia, unspecified severity, without behavioral disturbance, psychotic disturbance, mood disturbance, and anxiety; F32.9 Major depressive disorder, single episode, unspecified; F41.9 Anxiety disorder, unspecified; K21.9 Gastro-esophageal reflux disease without esophagitis; E66.9 Obesity, unspecified; Z68.35 Body mass index [BMI] 35.0-35.9, adult; M19.90 Unspecified osteoarthritis, unspecified site; Z86.711 Personal history of pulmonary embolism; Z87.891 Personal history of nicotine dependence
CPT/HCPCS: 31720; 36600; 71045; 71046; 74018; 74176; 74220; 80048; 80048 91; 80053; 80202; 81003; 82040; 82272; 82533 91; 82570; 82803; 82948; 83605; 83735; 83880; 83930; 83935; 84100; 84145 90; 84300; 84484; 84540; 84550; 85025; 85027; 85610; 85730; 86850; 86900; 86901; 86920; 87040; 87070; 87086; 87106; 87205; 87493; 87502; 87641; 89190; 92526 GN; 92610 GN; 93005; 93306; 93308; 94002; 94003; 94640; 94640 76; 94760; 94799; 97530 GO; 97530 GP; 99202; 99281; 99285; C1751; C1753; C9113; J0692; J0696; J0744; J1940; J2250; J2405; J2543; J2704; J2765; J2997; J3010; J3370; J3480; J7030; J7050; P9016; P9047

== ENCOUNTER 2017-11-01 17:22 | Inpatient (IN) | payer OTHER ==
[~2017-11-01] VITALS: Ht 157.5 cm; Wt 70.5 kg
[2017-11-01 00:06] VITALS: BP 148/62
[~2017-11-01 17:22] MED LIST changes: +CARDIZEM30 MG PO; +DUONEB 2.5-0.5 M3 ML AEROSOL; +SPIRONOLACTONE25 MG PO; +TYLENOL EXTRA500 MG PO; +Tylenol Extra Streng PO
[2017-11-01 18:04] LABS: BASOPHIL (%) 0.8 % (0-1); BASOPHIL COUNT 0.1 K/uL (0-0.1); EOSINOPHIL (%) 1.4 % (0-5); EOSINOPHIL COUNT 0.1 K/uL (0-0.3); HEMATOCRIT 35.7 % (36.0-46.0); HEMOGLOBIN 11.8 G/DL (11.9-15.5); LYMPHOCYTE (%) 22.6 % (15-42); MCH 30.2 PG (29.0-34.0); MCHC 33.1 G/DL (30.0-36.0); MCV 91.3 FL (83-99); MONOCYTE (%) 9.5 % (3-12); MONOCYTE COUNT 0.8 K/uL (0-0.8); NEUTROPHIL (%) 64.7 % (45-76); NEUTROPHIL COUNT 5.7 K/uL (1.8-6.4); PLATELET COUNT 360 K/uL (156-360); RBC DIS.WIDTH-CV 16.2 % (11.8-14.6); RBC DIS.WIDTH-SD 54.1 % (39-53); RED BLOOD COUNT 3.91 M/uL (3.80-5.20); WHITE BLOOD COUNT 8.8 K/uL (4.1-10.2)
[2017-11-01 18:12] LABS: INTER. NORMALIZED RATIO 1.5
[2017-11-01 18:16] LABS: PTT 30.8 SEC (25-37)
[2017-11-01 18:23] LABS: ALBUMIN 3.3 g/dL (3.2-4.8); CHLORIDE 93 mEq/L (99-109); POTASSIUM 5.5 mEq/L (3.7-5.4); SODIUM 126 mEq/L (136-147)
[2017-11-01 18:24] LABS: MAGNESIUM 2.4 mg/dL (1.3-2.7)
[2017-11-01 18:26] LABS: TOTAL PROTEIN 7.2 g/dL (6.4-8.3)
[2017-11-01 18:28] LABS: TOTAL BILIRUBIN 0.6 mg/dL (0.0-1.0)
[2017-11-01 18:29] LABS: ALKALINE PHOSPHATASE 102 IU/L (3-129); CREATININE 3.8 mg/dL (0.6-1.3); GFR ESTIMATE (CALCULATED) 12 mL/min/
[2017-11-01 18:31] LABS: AST (GOT) 13 IU/L (2-34); UREA NITROGEN (BUN) 83 mg/dL (9-23)
[2017-11-01 18:32] LABS: ALT (GPT) 14 IU/L (3-49)
[2017-11-01 18:48] LABS: GLUCOSE 118 mg/dL (70-99)
[2017-11-01 20:49] LABS: THYROTROPIN (TSH) 7.6 MIU/L (0.4-5.5)
[2017-11-01] MEDS ORDERED: AMLODIPINE BESY10 MG PO (21:24)
[2017-11-01] MEDS ORDERED: TYLENOL EXTRA500 MG PO (21:34)
[2017-11-01] MEDS ORDERED: DULCOLAX10 MG PR (21:36)
[2017-11-01] MEDS ORDERED: LORAZEPAM0.5 MG PO (21:37)
[2017-11-01] MEDS ORDERED: MILK OF MAGN PO (21:39)
[2017-11-01] MEDS ORDERED: MIRALAX119 GM PO (21:40)
[2017-11-01] MEDS ORDERED: ZOFRAN4 MG PO (21:43)
[2017-11-01] MEDS ORDERED: KAYEXALATE15 GM/60 M PO (21:48)
[2017-11-02 02:10] LABS: AMYLASE 36 IU/L (1-118)
[2017-11-02 02:15] LABS: ALKALINE PHOSPHATASE 99 IU/L (3-129)
[2017-11-02 02:18] LABS: ALT (GPT) 12 IU/L (3-49); AST (GOT) 12 IU/L (2-34)
[2017-11-02 02:19] LABS: LIPASE 25 U/L (1.0-51.0)
[2017-11-02 02:25] LABS: TROP-I INTERPRETATION NEGATIVE; TROPONIN-I 0.01 ng/mL (0.0-0.30)
[2017-11-02 03:02] VITALS: BP 110/56
[2017-11-02 07:52] VITALS: BP 117/57
[2017-11-02 08:08] LABS: HEMATOCRIT 35.1 % (36.0-46.0); HEMOGLOBIN 11.4 G/DL (11.9-15.5); MCH 29.4 PG (29.0-34.0); MCHC 32.5 G/DL (30.0-36.0); MCV 90.5 FL (83-99); PLATELET COUNT 349 K/uL (156-360); RBC DIS.WIDTH-CV 16.2 % (11.8-14.6); RBC DIS.WIDTH-SD 53.6 % (39-53); RED BLOOD COUNT 3.88 M/uL (3.80-5.20); WHITE BLOOD COUNT 8.2 K/uL (4.1-10.2)
[2017-11-02 08:29] LABS: TROP-I INTERPRETATION NEGATIVE; TROPONIN-I 0.02 ng/mL (0.0-0.30)
[2017-11-02 08:32] LABS: CHLORIDE 94 MEQ/L (99-109); CREATININE 3.2 MG/DL (0.6-1.3); GFR ESTIMATE (CALCULATED) 15 mL/min/; GLUCOSE 110 mg/dL (70-99); POTASSIUM 5.3 MEQ/L (3.7-5.4); SODIUM 129 MEQ/L (136-147); UREA NITROGEN (BUN) 74 mg/dL (9-23)
[2017-11-02 11:29] VITALS: BP 111/50
[2017-11-02 16:09] LABS: APPEARANCE CLEAR ((CLEAR)); BILIRUBIN NEGATIVE; BLOOD SMALL; COLOR YELLOW ((YELLOW)); GLUCOSE (STRIP) NEGATIVE; KETONES NEGATIVE; LEUKOCYTES TRACE; NITRITE NEGATIVE; PROTEIN (STRIP) NEGATIVE; SPECIFIC GRAVITY 1.011 (1.000-1.030); UROBILINOGEN 0.2 MG/DL (0.2-1.0)
[2017-11-02 16:35] VITALS: BP 115/50
[2017-11-02 16:47] LABS: BACTERIA NONE SEEN /HPF; EPITHELIAL CELLS 1+ /HPF; MUCUS 1+ /LPF; RED BLOOD CELLS 0-5 /HPF (0-5); WHITE BLOOD CELLS NONE SEEN /HPF (0-5)
[2017-11-02 16:48] LABS: UCUL ADDED? YES
[2017-11-02 18:45] VITALS: BP 141/65
[2017-11-02 23:20] VITALS: BP 135/71
[2017-11-03 04:14] VITALS: BP 142/62
[2017-11-03 06:09] LABS: BASOPHIL (%) 1.1 % (0-1); BASOPHIL COUNT 0.1 K/uL (0-0.1); EOSINOPHIL COUNT 0.1 K/uL (0-0.3); HEMATOCRIT 33.7 % (36.0-46.0); HEMOGLOBIN 10.9 G/DL (11.9-15.5); IMMATURE GRANULOCYTE (%) 0.8 % (0.0-0.7); LYMPHOCYTE COUNT 1.6 K/uL (1.0-2.8); MCH 29.7 PG (29.0-34.0); MCHC 32.3 G/DL (30.0-36.0); MCV 91.8 FL (83-99); MONOCYTE COUNT 0.8 K/uL (0-0.8); NEUTROPHIL (%) 59.1 % (45-76); NEUTROPHIL COUNT 3.8 K/uL (1.8-6.4); PLATELET COUNT 351 K/uL (156-360); RBC DIS.WIDTH-CV 16.4 % (11.8-14.6); RBC DIS.WIDTH-SD 55.8 % (39-53); RED BLOOD COUNT 3.67 M/uL (3.80-5.20); WHITE BLOOD COUNT 6.4 K/uL (4.1-10.2)
[2017-11-03 06:41] LABS: CHLORIDE 99 MEQ/L (99-109); GFR ESTIMATE (CALCULATED) 20 mL/min/; GLUCOSE 94 mg/dL (70-99); POTASSIUM 4.9 MEQ/L (3.7-5.4); SODIUM 133 MEQ/L (136-147); UREA NITROGEN (BUN) 57 mg/dL (9-23)
[2017-11-03 06:50] LABS: CREATININE 2.4 MG/DL (0.6-1.3)
[2017-11-03 08:47] VITALS: BP 140/70
[2017-11-03 11:57] VITALS: BP 130/74
[2017-11-03 15:54] VITALS: BP 154/67
[2017-11-03 19:45] VITALS: BP 154/67
[2017-11-03 23:41] VITALS: BP 158/69
[2017-11-04 04:28] VITALS: BP 155/65
[2017-11-04 05:58] LABS: HEMATOCRIT 30.4 % (36.0-46.0); HEMOGLOBIN 9.8 G/DL (11.9-15.5); MCH 29.7 PG (29.0-34.0); MCHC 32.2 G/DL (30.0-36.0); MCV 92.1 FL (83-99); NRBC (%) 0.3 /100 WBC (0-0); PLATELET COUNT 294 K/uL (156-360); RBC DIS.WIDTH-SD 54.4 % (39-53); WHITE BLOOD COUNT 5.7 K/uL (4.1-10.2)
[2017-11-04 06:29] LABS: CHLORIDE 104 MEQ/L (99-109); CREATININE 1.3 MG/DL (0.6-1.3); GFR ESTIMATE (CALCULATED) 41 mL/min/; GLUCOSE 85 mg/dL (70-99); SODIUM 131 MEQ/L (136-147); UREA NITROGEN (BUN) 38 mg/dL (9-23)
[2017-11-04 07:05] VITALS: BP 141/62
[2017-11-04] MEDS ORDERED: SODIUM CHLORIDE1 G1 PO (11:25)
[2017-11-04 12:00] VITALS: BP 148/64
== END 2017-11-04 15:24 | DRG 641 ==
LOC: EME 17:22 → EDOF 21:44 → CANRESERV 21:44 → 2EAST 21:44 → EDOF 21:44 → ENRESERV 21:44 → 2EAST 23:34
PROVIDERS: Emergency Medicine; Family Medicine; Hospitalist; Internal Medicine Nephrology
DX: E87.1 Hypo-osmolality and hyponatremia (principal); E87.5 Hyperkalemia; N17.9 Acute kidney failure, unspecified; I12.9 Hypertensive chronic kidney disease with stage 1 through stage 4 chronic kidney disease, or unspecified chronic kidney disease; N18.4 Chronic kidney disease, stage 4 (severe); K21.9 Gastro-esophageal reflux disease without esophagitis; F41.9 Anxiety disorder, unspecified; G89.4 Chronic pain syndrome; E03.9 Hypothyroidism, unspecified; F32.9 Major depressive disorder, single episode, unspecified; I48.0 Paroxysmal atrial fibrillation; E55.9 Vitamin D deficiency, unspecified; J44.9 Chronic obstructive pulmonary disease, unspecified; F03.90 Unspecified dementia, unspecified severity, without behavioral disturbance, psychotic disturbance, mood disturbance, and anxiety; E86.0 Dehydration; E66.9 Obesity, unspecified; E78.5 Hyperlipidemia, unspecified; Z79.01 Long term (current) use of anticoagulants; Z99.2 Dependence on renal dialysis; Z90.49 Acquired absence of other specified parts of digestive tract; Z86.711 Personal history of pulmonary embolism
CPT/HCPCS: 71045; 74176; 80048; 80053; 81003; 82150; 83690; 83735; 84075; 84300; 84439; 84443; 84450; 84460; 84484; 85025; 85025 91; 85027; 85610; 85730; 87086; 93005; 99281; 99284; G0378; J0692; J1644; J7030; S0030